=== PATIENT | male | born 1960 | race Caucasian/White ===

== ENCOUNTER → 2017-11-27 | Outpatient (CLI) | payer OTHER ==
[~2017-11-27] MED LIST: ACET-1693 PO; AMT10
== END | disposition home or self-care (01) ==
LOC: C.LAB1850 11:02
PROVIDERS: ATTEND Physician Assistant
DX: H90.42 Sensorineural hearing loss, unilateral, left ear, with unrestricted hearing on the contralateral side (principal); H81.09 Meniere's disease, unspecified ear

== ENCOUNTER → 2018-02-08 | Outpatient (CLI) | payer OTHER ==
[~2018-02-08] MED LIST changes: -ACET-1693 PO
[2018-02-08 09:57] LABS: BLOOD UREA NITROGEN 11 mg/dl (7-18); CALCIUM 9.1 mg/dl (8.5-10.1); CARBON DIOXIDE 28 mmol/L (21-32); CREATININE 0.83 mg/dl (0.60-1.40); GLUCOSE 89 mg/dl (70-99); POTASSIUM 4.2 mmol/L (3.5-5.1); SODIUM 139 mmol/L (136-145)
[2018-02-08 10:10] LABS: CHOLESTEROL 198 mg/dl (0-200); LDL CHOLESTEROL CALCULATED 101 mg/dl
== END | disposition home or self-care (01) ==
LOC: C.LAB1850 07:05
PROVIDERS: ATTEND Nurse Practitioner Adult Health
DX: Z82.49 Family history of ischemic heart disease and other diseases of the circulatory system (principal); Z82.3 Family history of stroke; Z13.220 Encounter for screening for lipoid disorders; Z12.5 Encounter for screening for malignant neoplasm of prostate; Z86.19 Personal history of other infectious and parasitic diseases; H93.12 Tinnitus, left ear; H91.90 Unspecified hearing loss, unspecified ear

== ENCOUNTER → 2018-03-26 | Outpatient (CLI) | payer OTHER ==
[2018-03-26 10:05] LABS: BLOOD UREA NITROGEN 13 mg/dl (7-18); CREATININE 0.89 mg/dl (0.60-1.40)
== END | disposition home or self-care (01) ==
LOC: C.LAB1850 07:51
PROVIDERS: ATTEND Physician Assistant
DX: H90.42 Sensorineural hearing loss, unilateral, left ear, with unrestricted hearing on the contralateral side (principal)

== ENCOUNTER 2022-11-02 20:43 | Inpatient (IN) ==
[2022-11-02] MEDS ORDERED: SODIUM CHLORIDE 0.9% 500 ML IV SCH (21:45)
--- NOTE | 2022-11-02 21:48 | Emergency Department Note ---
History of Present Illness General Chief complaint: Fall Time Seen by Provider: 11/02/22 21:22 History of Present Illness 62-year-old male presents to the ED with a chief complaint of a syncopal episode. The patient states that he believes he may have had a syncopal episode. He states that he was playing pinball with a pinball machine in the basement. There was some friends present. He states that he does not remember anything but waking up on the floor. His states that she was upstairs and the friends witnessed what occurred. They told her that he took a step backwards and then just collapsed. He was incontinent of urine. No clear seizure activity, per the . She states that he was unresponsive for about 2 minutes. He did not bite his tongue. He does not remember anything about the incident. He states that he awoke on the floor and thought he had just taken a nap. The patient wears a watch that monitors his heart rate. When looking at the graph, it appears as though there was a brief period where there was no heart beat. The patient did strike the back of his head on the concrete floor. Denies any neck pain or headache. Denies any complaints at this time. He is healthy. He did sprain his right ankle recently after going for a trail run. Denies any significant past medical history. Takes no medications. History of chronic left bundle branch block Home Medications Medication Instructions Recorded Confirmed Type No Known Home Medications 01/16/19 11/02/22 History Allergies Allergy/AdvReac Type Severity Reaction Status Date / Time No Known Drug Allergies Allergy Unknown NONE Verified 11/02/22 21:15 wheat Allergy Unknown AVOIDS Verified 11/02/22 21:15 CELIAC DISEASE Past Med/Surg History Medical History (Updated 11/02/22 @ 21:55 by Stephen Lara DO) Celiac disease Hearing deficit left ear Herniated cervical disc Left bundle branch block saw Dr. 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 Required: No Beliefs That Will Affect Care: None Current Living Situation: Spouse Feels Safe at Home: Yes Assistive Devices: Glasses Review of Systems A total of 10 systems reviewed and were otherwise negative Physical Exam Vital Signs Vital Signs - 24 hr 11/02/22 20:51 11/02/22 21:43 11/02/22 22:35 Temperature 36.7 C Temperature Source Oral Pulse Rate 76 Pulse Rate [Apical] 81 Pulse Rhythm Regular Pulse Strength Normal Respiratory Rate 16 16 Respiratory Effort / Characteristics Non-Labored Respiratory Depth Normal Respiratory Pattern Regular Blood Pressure 179/104 H Blood Pressure [Right Arm] Blood Pressure Mean 129 Blood Pressure Mean [Right Arm] Pulse Oximetry 98 97 98 Oxygen Delivery Method Room Air Room Air Sepsis Recent Fever Within 48 Hours No Sepsis New/Unexplained Change in Mental Status No Sepsis Action Taken by Nursing No Action Required 11/03/22 00:05 Temperature Temperature Source Pulse Rate Pulse Rate [Apical] 65 Pulse Rhythm Pulse Strength Respiratory Rate 16 Respiratory Effort / Characteristics Respiratory Depth Respiratory Pattern Blood Pressure Blood Pressure [Right Arm] 155/93 H Blood Pressure Mean Blood Pressure Mean [Right Arm] 113 Pulse Oximetry 98 Oxygen Delivery Method Room Air Sepsis Recent Fever Within 48 Hours Sepsis New/Unexplained Change in Mental Status Sepsis Action Taken by Nursing CONSTITUTIONAL/VITAL SIGNS: Reviewed / noted above. GENERAL: Non-toxic in appearance. INTEGUMENTARY: Warm, dry, and [place]. HEAD: Occipital hematoma EYES: without scleral icterus or trauma. ENT/OROPHARYNX: clear and moist. LYMPHADENOPATHY/NECK: Is supple without lymphadenopathy or meningismus. RESPIRATORY: Clear to auscultation bilaterally. No increased work of breathing. CARDIOVASCULAR: Regular rate and rhythm. GI/ABDOMEN: Soft and nontender. No organomegaly or pulsatile mass. EXTREMITIES: Warm and well perfused. BACK: No CVA tenderness. NEUROLOGICAL: Intact without focal deficits. PSYCHIATRIC: normal affect. MUSCULOSKELETAL: Normally developed with good muscle tone. TRIAGE NURSING DOCUMENTATION REVIEWED. Course Administered Medications Discontinued Medications Sodium Chloride (Nss) 500 mls @ 999 mls/hr IV .Q31M GLORIA Stop: 11/02/22 22:15 Last Infusion: 11/02/22 22:29 Dose: 0 mls/hr Documented By: Admin: 11/02/22 21:50 Dose: 999 mls/hr Documented By: LAISHA Medical Decision Making Differential Diagnosis Differential includes acute cardiac dysrhythmia, microinfarction, CVA, TIA, dehydration, anemia, electrolyte disturbance, seizure, trauma, intracranial bleeding, acute vascular catastrophe, thoracic aortic dissection, PE, abdominal aortic aneurysm rupture, ectopic rupture. Medical Records Attestation: I reviewed the patient's medical records. Home Medications Current Medication List: was personally reviewed by me Laboratory Data Attestation: I reviewed the patient's lab results. Result diagrams: 11/02/22 20:52 11/02/22 20:52 Lab Results 11/02/22 11/02/22 11/02/22 Range/Units 20:52 20:52 20:52 WBC 4.60 L (4.8-10.8) K/ul RBC 4.95 (4.63-6.08) M/uL Hgb 15.7 (14.0-18.0) g/dl Hct 44.5 (40.1-51.0) % MCV 89.9 (80.0-100.0) fL MCH 31.7 (25.0-34.0) pg MCHC 35.3 (32.0-36.0) g/dL RDW Std Deviation 41.2 (36.4-46.3) fL RDW Coeff of Anu 12.5 (11.5-14.5) % Plt Count 209 (130-400) K/uL MPV 10.6 (9.4-12.4) fL Immature Gran % (Auto) 0.2 % Neut % (Auto) 46.8 % Lymph % (Auto) 35.7 % [place] % (Auto) 13.3 % Eos % (Auto) 3.3 % Baso % (Auto) 0.7 % Neut # (Auto) 2.16 (1.4-6.5) K/uL Lymph # (Auto) 1.64 (1.2-3.4) K/uL [place] # (Auto) 0.61 (0.24-0.82) K/uL Eos # (Auto) 0.15 (0-0.50) K/uL Baso # (Auto) 0.03 (0-0.2) K/uL Immature Gran # (Auto) 0.01 (0.00-0.02) K/uL Sodium 140 (136-145) mmol/L Potassium 3.9 (3.5-5.1) mmol/L Chloride 105 (98-107) mmol/L Carbon Dioxide 27 (21-32) mmol/L Anion Gap 8 (3-11) BUN 12 (6-23) mg/dl Creatinine 0.85 (0.6-1.4) mg/dl Est Cr Clr Drug Dosing 103.9 ml/min Est GFR ( Amer) 106.7 ml/min Est GFR (Non-Af Amer) 92.1 ml/min BUN/Creatinine Ratio 14.1 (10-20) Glucose 96 (70-99(Fasting)) mg/dl Calcium 8.9 (8.5-10.1) mg/dl Magnesium 2.1 (1.7-2.4) mg/dl Total Bilirubin 0.6 (0.2-1.0) mg/dl AST 38 (13-39) U/L ALT 24 (7-52) U/L Alkaline Phosphatase 69 (34-104) U/L Troponin I High Sens 12.7 (0-20) pg/ml Total Protein 6.9 (6.0-8.3) gm/dl Albumin 4.2 (3.4-5.0) gm/dl Globulin 2.7 (2.5-4.0) gm/dl Albumin/Globulin Ratio 1.6 (0.9-2) TSH 4.581 H (0.300-4.500) uIu/ml Free T4 0.88 (0.61-1.60) ng/dl SARS-CoV-2, RNA, NAAT (NEGATIVE) 11/02/22 Range/Units 21:52 WBC (4.8-10.8) K/ul RBC (4.63-6.08) M/uL Hgb (14.0-18.0) g/dl Hct (40.1-51.0) % MCV (80.0-100.0) fL MCH (25.0-34.0) pg MCHC (32.0-36.0) g/dL RDW Std Deviation (36.4-46.3) fL RDW Coeff of Anu (11.5-14.5) % Plt Count (130-400) K/uL MPV (9.4-12.4) fL Immature Gran % (Auto) % Neut % (Auto) % Lymph % (Auto) % [place] % (Auto) % Eos % (Auto) % Baso % (Auto) % Neut # (Auto) (1.4-6.5) K/uL Lymph # (Auto) (1.2-3.4) K/uL [place] # (Auto) (0.24-0.82) K/uL Eos # (Auto) (0-0.50) K/uL Baso # (Auto) (0-0.2) K/uL Immature Gran # (Auto) (0.00-0.02) K/uL Sodium (136-145) mmol/L Potassium (3.5-5.1) mmol/L Chloride (98-107) mmol/L Carbon Dioxide (21-32) mmol/L Anion Gap (3-11) BUN (6-23) mg/dl Creatinine (0.6-1.4) mg/dl Est Cr Clr Drug Dosing ml/min Est GFR ( Amer) ml/min Est GFR (Non-Af Amer) ml/min BUN/Creatinine Ratio (10-20) Glucose (70-99(Fasting)) mg/dl Calcium (8.5-10.1) mg/dl Magnesium (1.7-2.4) mg/dl Total Bilirubin (0.2-1.0) mg/dl AST (13-39) U/L ALT (7-52) U/L Alkaline Phosphatase (34-104) U/L Troponin I High Sens (0-20) pg/ml Total Protein (6.0-8.3) gm/dl Albumin (3.4-5.0) gm/dl Globulin (2.5-4.0) gm/dl Albumin/Globulin Ratio (0.9-2) TSH (0.300-4.500) uIu/ml Free T4 (0.61-1.60) ng/dl SARS-CoV-2, RNA, NAAT NEGATIVE (NEGATIVE) ECG Data Attestation: I personally reviewed and interpreted this ECG as follows: Additional Comments: Twelve-lead EKG: Per my interpretation shows a sinus rhythm at a rate of 78. Left bundle branch block which apparently is chronic. ST elevation. No PVCs. Normal QTC. MDM Narrative 62-year-old male presents to the ED after what appears to be a possible cardiac syncope. The patient has a watch that monitors his heart rate and it produced a graph that showed that there was a period where he may have not had a heart rate that was detectable. The patient has no recollection of becoming lightheaded or dizzy prior to falling. States that he just remembers waking up on the ground as if he took a nap. Family and friends suggest that he was unresponsive for a minute or 2.He did suffer a contusion to the back of the head. Twelve-lead EKG shows a chronic left bundle branch block with sinus rhythm. CBC and chemistry panel was unremarkable. A T SH was slightly elevated but his free T4 was normal. Cardiac enzymes are normal. The patient's syncope today is concerning for cardiogenic type syncope. For this reason the hospitalist was consulted and will see the patient for further inpatient evaluation. Impression & Plan Syncope Discharge Plan Visit Data Chief Complaint: Fall ED Provider: Stephen Lara Discharge Problem: Syncope Patient Disposition: Being Evaluated by Hospitalist Forms Stand Alone Forms: My [employer] Prescriptions Prescriptions: No Action No Known Home Medications Referrals Referrals: Miya Be [Primary Care Provider] -
[2022-11-02 21:59] LABS: Basophils # (auto) 0.03 K/uL (0-0.2); Basophils % (auto) 0.7 %; Eosinophils # (auto) 0.15 K/uL (0-0.50); Eosinophils % (auto) 3.3 %; Hematocrit (blood only) 44.5 % (40.1-51.0); Hemoglobin 15.7 g/dl (14.0-18.0); Immature Granulocytes # (auto) 0.01 K/uL (0.00-0.02); Immature Granulocytes % (auto) 0.2 %; Lymphocytes # (auto) 1.64 K/uL (1.2-3.4); Lymphocytes % (auto) 35.7 %; Mean Corpuscular Hemoglobin 31.7 pg (25.0-34.0); Mean Corpuscular Hgb Conc 35.3 g/dL (32.0-36.0); Mean Corpuscular Volume 89.9 fL (80.0-100.0); Mean Platelet Volume 10.6 fL (9.4-12.4); Monocytes # (auto) 0.61 K/uL (0.24-0.82); Monocytes % (auto) 13.3 %; Neutrophils # (auto) 2.16 K/uL (1.4-6.5); Neutrophils % (auto) 46.8 %; Platelet Count 209 K/uL (130-400); RDW Coefficient of Variation 12.5 % (11.5-14.5); RDW Standard Deviation 41.2 fL (36.4-46.3); Red Blood Count 4.95 M/uL (4.63-6.08)
[2022-11-02 22:13] LABS: Albumin Globulin Ratio 1.6 (0.9-2); Albumin Level 4.2 gm/dl (3.4-5.0); BUN Creatinine Ratio 14.1 (10-20); Bilirubin,Total 0.6 mg/dl (0.2-1.0); Calcium 8.9 mg/dl (8.5-10.1); Creatinine Clr Calc Pharmacy 103.9 ml/min; Est GFR (African American) 106.7 ml/min; Est GFR (Non-African American) 92.1 ml/min; Globulin 2.7 gm/dl (2.5-4.0); Magnesium 2.1 mg/dl (1.7-2.4); Potassium 3.9 mmol/L (3.5-5.1); Total Protein 6.9 gm/dl (6.0-8.3)
[2022-11-02 22:17] LABS: Troponin I High Sensitivity 12.7 pg/ml (0-20)
[2022-11-02 22:25] LABS: Thyroid Stimulating Hormone 4.581 uIu/ml (0.300-4.500)
[2022-11-02 22:57] LABS: T4 Free Thyroxine 0.88 ng/dl (0.61-1.60)
--- NOTE | 2022-11-03 00:31 | History & Physical Report ---
Date of Service November 03, 2022 Assessment & Plan (1) Syncope and collapse: Plan: Syncope and collapse- Witnessed episode by of duration 2 to 4 minutes No warning ahead of time Patient did have brief loss of bladder control but normal bowel function Was not postictal Patient's body was thought to be briefly stiff, but did not have any convulsions It was noted on the patient's smart watch that there was an episode where there was no heartbeat. Taking into account the patient's presentation, history of previous ablation, family history of father having a pacer, the principal cause is more likely cardiac than neurologic. EKG showed normal sinus rhythm at 75, with left bundle branch block, no acute ST-T changes The patient will be admitted to telemetry for serial cardiac enzymes, serial EKG's, cardiac rhythm monitoring and a 2-D echocardiogram with Dopplers. Placement of pacer with pads at bedside (2) Celiac disease: Plan: Resume celiac diet when patient is no longer n.p.o. 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 Primary Care Provider: Miya Be The patient is a 62-year-old male with a past medical history including cardiac ablation for Lyme associated arrhythmia, Lyme disease July 2018, and chronic left bundle branch block. 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 The patient reports that when he had his cardiac arrhythmias in the past, he had warnings of lightheadedness or dizziness. He denies any warning at this episode. Overall length of time of episode was estimated between 2 to 4 minutes. His reports that he did lose bladder control, but did not have any postictal state afterwards, and thought he might have had tense muscles, but did not have any overt shaking contractions. The patient denies any change in his usual activity or eating or drinking patterns. He typically averages 1 glass of wine daily, which he had today. His father has had a history of a pacer placement by Dr. Biggs Allergies Allergy/AdvReac Type Severity Reaction Status Date / Time No Known Drug Allergies Allergy Unknown NONE Verified 11/02/22 21:15 wheat Allergy Unknown AVOIDS Verified 11/02/22 21:15 CELIAC DISEASE Home Medications Medication Instructions Recorded Confirmed Type No Known Home Medications 01/16/19 11/02/22 History Past Med/Surg History Medical History (Updated 11/03/22 @ 03:27 by Luiz Becerril MD) Celiac disease Hearing deficit left ear Herniated cervical disc History of Lyme disease Left bundle branch block saw Dr. Oliver 2017 Surgical History (Updated 11/03/22 @ 03:27 by Luiz Becerril MD) History of Achilles tendon repair left History of ankle surgery left--no hardware History of cardiac radiofrequency ablation History of colonoscopy History of esophagogastroduodenoscopy (EGD) History of myringotomy bilt History of surgery right hand, middle finger History of wisdom tooth extraction Hx of vasectomy Family History Other No family history of adverse response to anesthesia Social History Smoking Status: Never smoker Second Hand Exposure: No; Hx Alcohol Use: Yes Alcohol type: wine Hx Substance Use: No Preferred Language: Wallisian Communication Ability: Effective Medicaid Eligibility Specialist Required: No Beliefs That Will Affect Care: None Current Living Situation: Spouse Feels Safe at Home: Yes Safety Concerns: Feels Safe At This Time Assistive Devices: Glasses Assistive Devices Comment: reading glasses Review of Systems Review of Systems: The patient denies chest pain, palpitations, shortness of breath, dyspnea on exertion, cough, lower extremity swelling, sore throat, fevers, chills, sweats, weight change, fatigue, nausea, vomiting, diarrhea , constipation, abdominal pain, pelvic pain, blood in urine or stool, dysuria, urinary frequency or urgency, lightheadedness, dizziness, rash, focal weakness, numbness or tingling in arms or legs, generalized arthralgias or myalgias, back or neck pain, or night sweats. The review of systems is otherwise negative other than for that already noted above, and at least 10 systems have been reviewed. Physical Exam Physical Exam: The patient is awake, alert and oriented 3, well developed and well nourished, laceration on left posterior parietal scalp area and resultant hematoma, otherwise lying in bed and in no acute distress. HEENT--PERRL, EOMI, mucous membranes and oropharynx normal. Neck--supple. No JVD. No bruits. Thyroid normal, trachea midline, no adenopathy. Heart--normal S1 and S2. No murmurs, rubs or gallops. Lungs--clear bilaterally, no respiratory distress, no accessory muscle use. Abdomen--normal bowel sounds and soft. Nontender. Nondistended, no hernias or masses, no organomegaly. Extremities--no cyanosis or clubbing. No edema. Dermatologic--normal skin turgor, normal color, no abnormal lymph nodes, no rash. Neurologic--cranial nerves II through XII grossly intact. Rheumatologic--normal range of motion. Psychiatric--normal affect. Results & Data Results & Data ([facility]) Vital Signs (Past 12 Hours) Vital Signs Temp Pulse Pulse Resp BP BP Pulse Ox 11/03/22 00:05 65 16 155/93 H 98 11/02/22 22:35 81 16 98 11/02/22 21:43 97 11/02/22 20:51 36.7 C 76 16 179/104 H 98 O2 Del Method 11/03/22 00:05 Room Air 11/02/22 22:35 11/02/22 21:43 Room Air 11/02/22 20:51 Room Air Laboratory Results Laboratory Results WBC 4.60 K/ul (4.8-10.8) L 11/02/22 20:52 RBC 4.95 M/uL (4.63-6.08) 11/02/22 20:52 Hgb 15.7 g/dl (14.0-18.0) 11/02/22 20:52 Hct 44.5 % (40.1-51.0) 11/02/22 20:52 MCV 89.9 fL (80.0-100.0) 11/02/22 20:52 MCH 31.7 pg (25.0-34.0) 11/02/22 20:52 MCHC 35.3 g/dL (32.0-36.0) 11/02/22 20:52 RDW Std Deviation 41.2 fL (36.4-46.3) 11/02/22 20:52 RDW Coeff of Anu 12.5 % (11.5-14.5) 11/02/22 20:52 Plt Count 209 K/uL (130-400) 11/02/22 20:52 MPV 10.6 fL (9.4-12.4) 11/02/22 20:52 Immature Gran % (Auto) 0.2 % 11/02/22 20:52 Neut % (Auto) 46.8 % 11/02/22 20:52 Lymph % (Auto) 35.7 % 11/02/22 20:52 [place] % (Auto) 13.3 % 11/02/22 20:52 Eos % (Auto) 3.3 % 11/02/22:52 Baso % (Auto) 0.7 % 11/02/22:52 Neut # (Auto) 2.16 K/uL (1.4-6.5) 11/02/22 20:52 Lymph # (Auto) 1.64 K/uL (1.2-3.4) 11/02/22 20:52 [place] # (Auto) 0.61 K/uL (0.24-0.82) 11/02/22 20:52 Eos # (Auto) 0.15 K/uL (0-0.50) 11/02/22 20:52 Baso # (Auto) 0.03 K/uL (0-0.2) 11/02/22 20:52 Immature Gran # (Auto) 0.01 K/uL (0.00-0.02) 11/02/22 20:52 Sodium 140 mmol/L (136-145) 11/02/22 20:52 Potassium 3.9 mmol/L (3.5-5.1) 11/02/22 20:52 Chloride 105 mmol/L (98-107) 11/02/22 20:52 Carbon Dioxide 27 mmol/L (21-32) 11/02/22 20:52 Anion Gap 8 (3-11) 11/02/22 20:52 BUN 12 mg/dl (6-23) 11/02/22 20:52 Creatinine 0.85 mg/dl (0.6-1.4) 11/02/22 20:52 Est Cr Clr Drug Dosing 103.9 ml/min 11/02/22 20:52 Est GFR ( Amer) 106.7 ml/min 11/02/22 20:52 Est GFR (Non-Af Amer) 92.1 ml/min 11/02/22 20:52 BUN/Creatinine Ratio 14.1 (10-20) 11/02/22 20:52 Glucose 96 mg/dl (70-99(Fasting)) 11/02/22 20:52 Calcium 8.9 mg/dl (8.5-10.1) 11/02/22 20:52 Magnesium 2.1 mg/dl (1.7-2.4) 11/02/22 20:52 Total Bilirubin 0.6 mg/dl (0.2-1.0) 11/02/22 20:52 AST 38 U/L (13-39) 11/02/22 20:52 ALT 24 U/L (7-52) 11/02/22 20:52 Alkaline Phosphatase 69 U/L (34-104) 11/02/22 20:52 Troponin I High Sens 12.7 pg/ml (0-20) 11/02/22 20:52 Total Protein 6.9 gm/dl (6.0-8.3) 11/02/22 20:52 Albumin 4.2 gm/dl (3.4-5.0) 11/02/22 20:52 Globulin 2.7 gm/dl (2.5-4.0) 11/02/22 20:52 Albumin/Globulin Ratio 1.6 (0.9-2) 11/02/22 20:52 TSH 4.581 uIu/ml (0.300-4.500) H 11/02/22 20:52 Free T4 0.88 ng/dl (0.61-1.60) 11/02/22 20:52 SARS-CoV-2, RNA, NAAT NEGATIVE (NEGATIVE) 11/02/22 21:52 Code Status & VTE Plan Code Status Full code VTE Prophylaxis Plan VTE Prophylaxis will be ordered: Yes
[2022-11-03] MEDS ORDERED: ACETAMINOPHEN 325 MG TAB PO PRN (02:15)
[2022-11-03] MEDS ORDERED: ONDANSETRON INJ 2 MG/ML 2 ML VIAL IV PRN (02:15)
[2022-11-03] MEDS ORDERED: NSS + 20MEQ KCL 20 MEQ/1,000 ML BAG IV SCH (02:30)
--- NOTE | 2022-11-03 03:32 | Billing Data ---
Date of Service November 03, 2022 Coding Level of Care Code INT OBSERVATION CARE 70M LVL 3
[2022-11-03 06:12] LABS: Basophils # (auto) 0.03 K/uL (0-0.2); Basophils % (auto) 0.5 %; Eosinophils # (auto) 0.06 K/uL (0-0.50); Eosinophils % (auto) 1.1 %; Hematocrit (blood only) 41.3 % (40.1-51.0); Hemoglobin 14.5 g/dl (14.0-18.0); Immature Granulocytes # (auto) 0.01 K/uL (0.00-0.02); Immature Granulocytes % (auto) 0.2 %; Lymphocytes # (auto) 0.86 K/uL (1.2-3.4); Lymphocytes % (auto) 15.4 %; Mean Corpuscular Hemoglobin 31.5 pg (25.0-34.0); Mean Corpuscular Hgb Conc 35.1 g/dL (32.0-36.0); Mean Corpuscular Volume 89.8 fL (80.0-100.0); Mean Platelet Volume 10.3 fL (9.4-12.4); Monocytes # (auto) 0.74 K/uL (0.24-0.82); Monocytes % (auto) 13.3 %; Neutrophils # (auto) 3.88 K/uL (1.4-6.5); Neutrophils % (auto) 69.5 %; Platelet Count 188 K/uL (130-400); RDW Coefficient of Variation 12.4 % (11.5-14.5); RDW Standard Deviation 40.9 fL (36.4-46.3); White Blood Count 5.58 K/ul (4.8-10.8)
[2022-11-03 06:48] LABS: Albumin Globulin Ratio 1.7 (0.9-2); Albumin Level 3.8 gm/dl (3.4-5.0); Bilirubin,Total 0.8 mg/dl (0.2-1.0); Calcium 8.6 mg/dl (8.5-10.1); Est GFR (African American) 112.4 ml/min; Est GFR (Non-African American) 96.9 ml/min; Globulin 2.3 gm/dl (2.5-4.0); Potassium 4.4 mmol/L (3.5-5.1); Total Protein 6.1 gm/dl (6.0-8.3)
--- NOTE | 2022-11-03 06:51 | CT Scan Report ---
CT head/brain wo con CLINICAL HISTORY: 62 years-old Male with head injury. Acute head injury status post fall TECHNIQUE: Multiple axial CT images of the head were obtained without contrast. A dose lowering tech nique was utilized adhering to the principles of ALARA. CT DOSE: 614.27 mGy.cm COMPARISON: 11/26/2006 FINDINGS: No acute intracranial hemorrhage, midline shift, intracranial mass, hydrocephalus, territorial ischem ia or abnormal extra-axial collection. The calvarium is intact. Trace mastoid effusions. Paranasal sinuses are generally clear. Laceration with 7 cm left occipital scalp hematoma. IMPRESSION: 1. No acute intracranial abnormality or calvarial fracture. 2. Left occipital scalp laceration with hematoma. ACT 112: Negative or not required by law. The above report was generated using voice recognition software. It may contain grammatical, syntax o r spelling errors. Electronically signed by: Yves Jane M.D. 11/03/2022 6:50 AM
--- NOTE | 2022-11-03 08:16 | XRay Report ---
XR chest 1V portable CLINICAL HISTORY: syncope TECHNIQUE: Single frontal radiograph of the chest was obtained. Comparison: None available at the time of this dictation. FINDINGS: No lines and tubes are seen. The cardiomediastinal silhouette is normal. The lungs are clear. No evid ence of pleural effusion or pneumothorax. IMPRESSION: No acute chest disease. ACT 112: Negative or not required by law. Electronically signed by: Alvaro Mena M.D. 11/03/2022 8:15 AM
--- NOTE | 2022-11-03 11:39 | XCELERA ---
[id number]
--- NOTE | 2022-11-03 14:55 | Cardiology Consultation ---
Date of Consultation November 03, 2022 Assessment & Plan (1) Syncope: -episode of traumatic syncope prompting this hospitalization. -Apple watch suggested no pulse during the event. -no prior history of syncope. -Dr. Biggs will see the patient today. (2) Left bundle branch block: -diagnosed back in 2007. -negative workup at that time. -current echocardiogram notes normal systolic function. History of Present Illness Attending Physician: Hieu Aceves MD History of Present Illness Mr. Nunes is a 62-year-old male admitted earlier today after an episode of witnessed syncope. This consultation was ordered to assist in his cardiac management. The patient was in his usual state of health until last evening. While playing pin ball in his basement with friends, the patient had the abrupt onset of a syncopal episode falling backwards and striking his head. One of his friends noticed a strange look on his face just prior to the event. The explains that she was unable to find a pulse for approximately 20 seconds. The patient walk after approximately 2 minutes. He has never had a prior episode of syncope. His Apple watch suggested there was no pulse during the event. He does have a longstanding history of a left bundle branch block which was diagnosed back in 2007 at the time of an outpatient colonoscopy. 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 He did have left ventricular dysfunction which resolved with treatment. He did have a cardiac CT scan performed at that time which showed no evidence of obstructive disease. 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 He has never experienced exertional chest pain or limiting dyspnea. He further denies PND, orthopnea, palpitations, lower extremity edema, and claudication. Currently, patient is resting comfortably in bed without complaints. Past medical and surgical history 1. LBBB 2. Celiac disease 3. Colonic polyps 4. Cervical disc disease 5. 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 Family history Father in his 90s of old age. Mother is in her 80s with hypertension. Review of systems A 10 review systems was undertaken and negative except that described above. Allergies Allergy/AdvReac Type Severity Reaction Status Date / Time No Known Drug Allergies Allergy Unknown NONE Verified 11/02/22 21:15 wheat Allergy Unknown AVOIDS Verified 11/02/22 21:15 CELIAC DISEASE Home Medications Medication Instructions Recorded Confirmed Type No Known Home Medications 01/16/19 11/02/22 History Patient History Medical History (Updated 11/03/22 @ 03:27 by Luiz Becerril MD) Celiac disease Hearing deficit left ear Herniated cervical disc History of Lyme disease Left bundle branch block saw Dr. Oliver 2017 Surgical History (Updated 11/03/22 @ 03:27 by Luiz Becerril MD) History of Achilles tendon repair left History of ankle surgery left--no hardware History of cardiac radiofrequency ablation History of colonoscopy History of esophagogastroduodenoscopy (EGD) History of myringotomy bilt History of surgery right hand, middle finger History of wisdom tooth extraction Hx of vasectomy Family History Other No family history of adverse response to anesthesia Social History Smoking Status: Never smoker Second Hand Exposure: No; Hx Alcohol Use: Yes Alcohol type: wine Hx Substance Use: No Preferred Language: Singaporean Communication Ability: Effective Diesel Service Journeyman Required: No Beliefs That Will Affect Care: None Current Living Situation: Spouse Feels Safe at Home: Yes Safety Concerns: Feels Safe At This Time Assistive Devices: Glasses Assistive Devices Comment: reading glasses Physical Exam Physical Exam: In general this is a well-developed well-nourished white male in no acute distress. HEENT exam is negative. Neck is supple with full carotid upstrokes. There are no carotid bruits. Jugular venous pressure is flat at 90. There is no thyromegaly. Cardiovascular exam reveals a regular rhythm with a normal S1 and S2. No S3, S4, or murmurs are noted. Lungs are clear without rales, rhonchi, or wheezes. Abdomen is soft and nontender without bruits. Extremities reveal intact radial artery and posterior tibial pulses bilaterally. There is no peripheral edema. Results & Data ([facility]) Vital Signs (Past 12 Hours) Vital Signs Temp Pulse Resp BP Pulse Ox O2 Del Method 11/03/22 11:47 36.2 C L 56 L 14 157/85 H 97 Room Air 11/03/22 08:20 36.6 C 62 17 154/75 H 97 Room Air Laboratory Results CBC notes hemoglobin 14.5, crit 41.3, white count 5.58, and platelet count [id number]. Electrolytes note a sodium of 139, potassium 4.4, chloride 109, bicarb 25, BUN 12, creatinine 0.75, glucose of 96. High sensitivity troponin is 12.7. Diagnostic Findings EKG notes sinus rhythm with a complete left bundle-branch block. Echocardiogram notes normal left ventricular systolic function with ejection fraction 55-60%. There is borderline LVH. No significant valvular pathology. PG Care Time/CCT Total # of Minutes Spent Total Time Spent with Patient: Total time spent is greater than 50% in coordination of care (as documented) at patient's floor/unit and/or counseling patient: Coding Level of Care Code 36328 Inpt Consult Level 4 Diagnoses Syncope R55 Left bundle branch block I44.7
--- NOTE | 2022-11-03 16:44 | Electrocardiogram Report ---
Test Reason : Blood Pressure : / mmHG Vent. Rate : 075 BPM Atrial Rate : 075 BPM P-R Int : 190 ms QRS Dur : 142 ms QT Int : 444 ms P-R-T Axes : 055 050 -87 degrees QTc Int : 495 ms Normal sinus rhythm Possible Left atrial enlargement Left bundle branch block Abnormal ECG No previous ECGs available Confirmed by Tereso Oliver ([id number]) on 11/03/2022 4:44:23 PM Referred By: REFERRED SELF Confirmed By:Tereso Oliver
--- NOTE | 2022-11-03 16:46 | Electrocardiogram Report ---
Test Reason : Blood Pressure : / mmHG Vent. Rate : 064 BPM Atrial Rate : 064 BPM P-R Int : 190 ms QRS Dur : 134 ms QT Int : 466 ms P-R-T Axes : 067 065 -69 degrees QTc Int : 480 ms Normal sinus rhythm Left bundle branch block T wave abnormality, consider inferior ischemia Abnormal ECG When compared with ECG of 02-NOV-2022 20:49, (unconfirmed) No significant change was found Confirmed by Tereso Oliver ([id number]) on 11/03/2022 4:46:15 PM Referred By: REFERRED SELF Confirmed By:Tereso Oliver
--- NOTE | 2022-11-03 19:49 | History & Physical Bridge Note ---
Date of Service November 03, 2022 History & Physical Bridge Note I have examined the patient, reviewed the History & Physical and in the interval since the performance of the History & Physical I have noted the following changes of clinical significance: Met patient in his room around 6 PM. Has no has not had any further episodes of syncope or dizziness. No home meds. Was diagnosed with Lyme carditis in 2012 and before that with a left bundle branch block post colonoscopy. He has been training for a marathon. He has almost been a triathlete in the past. Runs was running on the [place] practicing for marathon as recently as a few days ago. No known hypertension but persistently high blood pressure here. No complaints and waiting for Sunday when a possible pacemaker implantation will be done. 's note not available Will start amlodipine 2.5 mg daily for hypertension in the morning. Sinus bradycardia in the 50s and 60s on telemetry. Echocardiogram normal except for concentric LVH, likely from undiagnosed hypertension Interestingly blood pressure was 159/74 on 02/03/19
[2022-11-04 05:39] LABS: Basophils # (auto) 0.03 K/uL (0-0.2); Basophils % (auto) 0.8 %; Eosinophils # (auto) 0.13 K/uL (0-0.50); Eosinophils % (auto) 3.4 %; Hematocrit (blood only) 43.1 % (40.1-51.0); Hemoglobin 15.1 g/dl (14.0-18.0); Immature Granulocytes # (auto) 0.01 K/uL (0.00-0.02); Immature Granulocytes % (auto) 0.3 %; Lymphocytes # (auto) 1.09 K/uL (1.2-3.4); Lymphocytes % (auto) 28.2 %; Mean Corpuscular Hemoglobin 31.5 pg (25.0-34.0); Mean Platelet Volume 10.4 fL (9.4-12.4); Monocytes # (auto) 0.63 K/uL (0.24-0.82); Monocytes % (auto) 16.3 %; Neutrophils # (auto) 1.97 K/uL (1.4-6.5); Platelet Count 189 K/uL (130-400); RDW Coefficient of Variation 12.2 % (11.5-14.5); RDW Standard Deviation 40.3 fL (36.4-46.3); Red Blood Count 4.79 M/uL (4.63-6.08); White Blood Count 3.86 K/ul (4.8-10.8)
[2022-11-04 06:03] LABS: Albumin Globulin Ratio 1.6 (0.9-2); Albumin Level 3.8 gm/dl (3.4-5.0); BUN Creatinine Ratio 15.6 (10-20); Calcium 8.6 mg/dl (8.5-10.1); Creatinine Clr Calc Pharmacy 103.2 ml/min; Est GFR (African American) 111.2 ml/min; Est GFR (Non-African American) 95.9 ml/min; Globulin 2.4 gm/dl (2.5-4.0); Magnesium 1.9 mg/dl (1.7-2.4); Total Protein 6.2 gm/dl (6.0-8.3)
--- NOTE | 2022-11-04 08:42 | Hospitalist Progress Note ---
Date of Service November 04, 2022 Assessment & Plan (1) Syncope and collapse: Plan: assumed sick sinus syndrome . Patient says likely pacemaker insertion 11/06 per EP cardiogy EKG : this am : PVCs, sinus bradycardia (2) Hypertension: Plan: ne dx- last got bp check a year ago at PCP visit and was in 130s he thinks Started amlodipine this am first dose 2.5 mg. Answered patient's questions re this drug. Low salt diet and education. (3) Celiac disease: Plan: dx 15 years ago-on glutein free diet- no symptoms. (4) Left bundle branch block: Plan: long standing. No symptoms of angina ever- very active running on trails etc. check FLP (5) History of Lyme disease: Plan: and Lyme carditis evaluated by a product marketing manager Plan on tele. Cardiology following- appreciated Milddly elvated TSH - not concerning . Admission and Anticipated Discharge Date Admission Date: November 03, 2022 Subjective seen at 0815 h no dizziness/ CP/syncope. Slept well. No weight change/ cold intolerance/ dry skin Physical Exam Physical Exam: pleasant, conversant, in street clothes, shoes ready by chair to start walking in colon H/N : no thyromegaly Chest CTA cvs: s1, s2 no murmur tele- sinus bradycardia at 4 per minute MICROFILMER : grossly intact cheerful, normal insight and judgment Results & Data Results & Data ([facility]) Vital Signs (Past 12 Hours) Vital Signs Temp Pulse Pulse Resp BP Pulse Ox O2 Del Method 11/04/22 02:56 36.5 C 54 L 20 144/76 H 97 Room Air 11/04/22 01:12 58 L 11/03/22 22:47 36.8 C 60 18 159/78 H 98 Room Air Laboratory Results Abnormal lab results 11/04/22 11/04/22 Range/Units 05:10 05:10 WBC 3.86 L (4.8-10.8) K/ul Lymph # (Auto) 1.09 L (1.2-3.4) K/uL Chloride 108 H (98-107) mmol/L Globulin 2.4 L (2.5-4.0) gm/dl normal Mg, lipid panel pending 11/04 Medications Administered norvasc 2.5 mg this am PG Care Time/CCT Total # of Minutes Spent Total Time Spent with Patient: Total time spent is greater than 50% in coordination of care (as documented) at patient's floor/unit and/or counseling patient: Coding Level of Care Code 50312 Subseq Hosp Care Lvl 2 Diagnoses Syncope and collapse R55 Hypertension I10 Celiac disease K90.0 Left bundle branch block I44.7 History of Lyme disease Z86.19
[2022-11-04] MEDS: amLODIPine BESYLATE 5 MG TAB PO SCH (08:55)
[2022-11-04 09:13] LABS: Chol HDL Ratio 2.4 (0-5)
[2022-11-05] MEDS: amLODIPine BESYLATE 5 MG TAB PO SCH (08:08)
--- NOTE | 2022-11-05 14:30 | Neurology Consultation ---
Date of Consultation November 05, 2022 Assessment & Plan (1) Syncope and collapse: (2) Head trauma: (3) Hypertension: Plan this patient had a single episode November 02 of syncope, without any warning, falling straight down and hitting the back of his head. There may have been s ome brief secondary seizure activity, but this is not consistent with primary epilepsy. It would be highly unusual for a healthy adult to have the new onset of "atonic" seizures. Also, this is not consistent with orthostasis as no warning of lightheadedness was present. Patient struck the back of his head rather hard and had a loss of consciousness for couple of minutes. I suspect a concussion from closed head trauma although he does not have any post concussive type symptoms including no headache. His neurologic examination is unremarkable currently. I think the evidence points toward a cardiac dysrhythmia as the origin of this event. Recommendations: 1. I see no need for neurologic testing but to obtain an MRI of the brain with/without contrast, is reasonable ( this could be done as an inpatient or outpatient). 2. I see no reason for an EEG at this time. 3. there is no indication for initiating an anticonvulsant at this time. 4. I have no further recommendations otherwise I can follow as an outpatient if desired Overall, I spent a total of 60 minutes with this case including review of records, direct evaluation the patient at bedside, and discussion of the case with the patient and RN at bedside and Dr. Aceves, including differential diagnosis and treatment options. History of Present Illness Reason for Consultation: Patient is a 62-year-old, who I was asked to see at the request of Dr. Aceves, neurologic consultation regarding syncope, question seizures Requesting Physician: Dr. Valdes Attending Physician: Hieu Aceves MD History of Present Illness this patient has a history of left bundle branch block, followed by Cardiology. He has no history of hypertension, diabetes, stroke or other heart disease. He was on no medication prior to admission. he has no history of seizures or other neurologic events in the. Patient was playing with friends in the evening November 02. According to witnesses he stopped, to one-step back then collapsed suddenly to the ground striking the back of his head on the concrete. He was loose as he went. No tonic-clonic activity was noted but apparently he some incontinence of urine bit his lower limb. His tongue was not. He was unconscious for about 2 minutes and then came to. His watch, which monitors his heartbeat, had a complete pause (as with no heartbeat) for several seconds during that time. I have seen the evidence on his watch. He came to the emergency room and his blood pressure was 179/104. He was afebrile and his pulse was in the 70s. He has had no further syncopal episodes for seizure activity. CT scan head was. CBC and Chem profile were. TSH mildly elevated at 4.3. Today he is asymptomatic although the back of his head is still sore from the bruise from the event. Echocardiogram was largely Unremarkable. Allergies Allergy/AdvReac Type Severity Reaction Status Date / Time No Known Drug Allergies Allergy Unknown NONE Verified 11/02/22 21:15 wheat Allergy Unknown AVOIDS Verified 11/02/22 21:15 CELIAC DISEASE Home Medications Medication Instructions Recorded Confirmed Type No Known Home Medications 01/16/19 11/02/22 History Patient History Medical History Celiac disease Hearing deficit left ear Herniated cervical disc History of Lyme disease Left bundle branch block saw Dr. Oliver 2017 Surgical History History of Achilles tendon repair left History of ankle surgery left--no hardware History of cardiac radiofrequency ablation History of colonoscopy History of esophagogastroduodenoscopy (EGD) History of myringotomy bilt History of surgery right hand, middle finger History of wisdom tooth extraction Hx of vasectomy Family History Other No family history of adverse response to anesthesia Social History (Updated 11/05/22 @ 14:24 by Maxi Hughes MD) Smoking Status: Never smoker Second Hand Exposure: No; Hx Alcohol Use: Yes Alcohol type: wine Hx Substance Use: No Preferred Language: Greek Communication Ability: Effective District Service Manager Required: No Beliefs That Will Affect Care: None Current Living Situation: Spouse current occupational status: employed 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 Feels Safe at Home: Yes Safety Concerns: Feels Safe At This Time Assistive Devices: None Assistive Devices Comment: reading glasses Review of Systems Constitutional: no fever, no fatigue and no weakness Eyes: no diplopia, no eye pain and no worsening vision Ear, Nose, Mouth, Throat: no ear pain, no tinnitus, no hearing loss, no dizziness, no snoring, no hoarseness and no dysphagia Respiratory: no cough and no dyspnea Cardiovascular: no chest pain, no palpitations and no lightheadedness Gastrointestinal: no abdominal pain, no nausea and no vomiting Musculoskeletal: no back pain, no neck pain, no radicular pain, no joint pain and no myalgia Integumentary: no rash and no lesions Neurologic: no gait abnormality, no localized weakness, no generalized weakness, no tingling, no numbness, no tremor(s), no abnormal movements, no headache(s), no abnormal speech, no confusion and no memory loss Psychiatric: no depression, no irritability, no anxiety, no difficulty concentrating, no confusion and no hallucinations Endocrine: no fatigue and no flushing Hematologic / Lymphatic: no easy bleeding and no easy bruising Allergy / Immunological: no urticaria and no problem reported Exam (Neuro) Physical Exam: The patient is right-handed. The patient is awake, alert, and attentive. Speech is normal without any aphasia or dysarthria. The patient can name objects, repeat phrases, and has normal spontaneous speech. Mentation and thought processes are intact, with orientation to person, place and time, and normal fund of knowledge. Attention and concentration are normal. Mood and affect are normal and appropriate. General appearance and grooming are normal. Short and long-term memory are in tact. The discs are sharp with positive venous pulsations bilaterally. There are no exudates, hemorrhages, or blood vessel changes seen. Pupils are 4 mm bilaterally and reactive to light. Extraocular eye muscles are intact without nystagmus. Visual acuity and visual jernigan seem normal grossly to confrontation. There are no deficits to sensation in the face in all 3 distributions of the fifth cranial nerve bilaterally. Corneal reflexes are positive bilaterally. Facial strength and symmetry was normal bilaterally. Hearing seems normal bilaterally. Palate moves well without asymmetry. There is normal sternocleidomastoid and trapezius (shoulder shrug) strength bilaterally. Tongue is midline with good strength bilaterally. Neck has a full range of motion without discomfort. There are no cervical bruits bilaterally. There are no cranial or ocular bruits. Heart is without murmur. There is a regular rhythm and rate. Cervical, thoracic, and lumbar spine are nontender to palpation. His stance is normal sitting in chair With outstretched arms there is no drift. There are no resting, postural, or action tremors. There is no ataxia with finger to nose testing. There is good facility in the hands. No other abnormal involuntary movements are noted. Motor strength is 5/5 diffusely in the arms bilaterally including deltoids, biceps, triceps, brachioradialis, wrist flexors and extensors, education faculty member, and intrinsic hand muscles. Motor strength is 5/5 diffusely in the legs bilaterally including hip flexors, quadriceps, hamstrings, gastrocnemius, tibialis anterior, tibialis posterior, and Peroneii muscles. Toe extensors are normal and there is good bulk in the extensor digitorum brevis muscles bilaterally. The limbs have good tone without rigidity or spasticity. There is no atrophy noted in the muscles. Muscle bulk is normal, there is no tenderness to palpation, no myotonia to percussion, and no fasciculations seen. Sensory examination is intact to touch and pin throughout all 4 limbs diffusely. Reflexes are 1/4 in the biceps, triceps, brachioradialis, quadriceps, and Achilles tendons bilaterally. There is no clonus bilaterally. Results & Data ([facility]) Vital Signs (Past 12 Hours) Vital Signs Temp Pulse Pulse Resp BP Pulse Ox O2 Del Method 11/05/22 12:09 36.5 C 53 L 20 150/75 H 99 Room Air 11/05/22 08:00 52 L 11/05/22 07:53 36.6 C 57 L 20 115/72 97 Room Air 11/05/22 03:00 36.5 C 50 L 20 138/81 98 Room Air PG Care Time/CCT Total # of Minutes Spent Total Time Spent with Patient: Total time spent is greater than 50% in coordination of care (as documented) at patient's floor/unit and/or counseling patient: Coding Level of Care Code 81864 Inpt Consult Level 5 Diagnoses Syncope and collapse R55 Head trauma S09.90XA Hypertension I10
--- NOTE | 2022-11-05 15:45 | Hospitalist Progress Note ---
Date of Service November 05, 2022 Assessment & Plan (1) Syncope and collapse: Plan: assumed sick sinus syndrome needing pacemaker placement. 11/05 D/W Roshni Biggs and [place]. (Office Manager and child care development specialist on- call today respectively). Neurology consult obtained to rule out seizures. Mendy Hughes' s input- unlikely epileptic seizures. No plan for EEG Cardiogenic cause of syncope appears most likely. Patient would like to speak with a child care development specialist in detail before any procedure and both cardiologists above aware . MRI brain suggested and ordered because may not be able to get after pacemaker insertion . EKG : 11/05 normal sinus rhythm left bundle branch block, rate 53/min, no PVCs seen today (2) Hypertension: Plan: new dx- last got bp check a year ago at PCP visit and was in 130s he thinks Started amlodipine 11/04 first dose 2.5 mg. Answered patient's questions re this drug. Low salt diet and education. (3) Celiac disease: Plan: dx 15 years ago-on glutein free diet- no symptoms. (4) Left bundle branch block: Plan: long standing. No symptoms of angina ever- very active running on trails etc. FLP 11/04 LDL 93, HDL 75 triglycerides 61 (5) History of Lyme disease: Plan: and Lyme carditis evaluated by a child care development specialist Plan on tele. Cardiology following- appreciated Mildly elevated TSH - not concerning . Admission and Anticipated Discharge Date Admission Date: November 04, 2022 Subjective seen around 9 am No complaints. Wonders if he had a seizure and not a cardiac event the other day which caused a syncopal episode causing admission. Showing me on his iPad the frequency of the LCD lights on his pinball machine with a warning on the manual that this may precipitate L of epileptic seizures. He has no history of seizures but his brother has seizure disorder. Also his father at an advanced age had seizure medications ongoing. No dizziness/chest pain/syncope Physical Exam Physical Exam: pleasant, conversant, in street clothes, slightly anxious today H/N : no thyromegaly Chest CTA cvs: s1, s2 no murmur tele- sinus bradycardia in the 50s, paroxysmal atrial tachycardia seen around 10 AM on telemetry IMPROVEMENT SPEC : grossly intact cheerful, normal insight and judgment Results & Data Results & Data ([facility]) Vital Signs (Past 12 Hours) Vital Signs Temp Pulse Pulse Resp BP Pulse Ox O2 Del Method 11/05/22 12:09 36.5 C 53 L 20 150/75 H 99 Room Air 11/05/22 08:00 52 L 11/05/22 07:53 36.6 C 57 L 20 115/72 97 Room Air Diagnostic Findings MRI brain pending Medications Administered Home Medications Medication Instructions Recorded Confirmed Last Taken No Known Home Medications 01/16/19 11/02/22 Unknown Active Medications Generic Name Dose Route Start Last Admin Trade Name Carlos Alberto PRN Reason Stop Dose Admin Amlodipine Besylate 2.5 mg 11/04/22 09:00 11/05/22 08:08 Amlodipine Besylate 5 Mg Tab PO 12/04/22 08:59 2.5 mg QAM GLORIA Administration PG Care Time/CCT Total # of Minutes Spent Total Time Spent with Patient: Total time spent is greater than 50% in coordination of care (as documented) at patient's floor/unit and/or counseling patient: Prolonged Care Time 35 minutes extra time coordinating between child care development specialist on-call, EP child care development specialist and neurologist Coding Level of Care Code 79430 Subseq Hosp Care Lvl 2 Diagnoses Syncope and collapse R55 Hypertension I10 Celiac disease K90.0 Left bundle branch block I44.7 History of Lyme disease Z86.19
--- NOTE | 2022-11-05 16:23 | Cardiology Progress Note ---
Date of Service November 05, 2022 Assessment & Plan (1) Syncope and collapse: (2) Bradycardia: (3) Left bundle branch block: Plan ASSESSMENT/PLAN: 1. Syncope: Had syncopal event without warning with smart watch suggesting no heart beat. Has been seen by electrophysiology, Dr. Biggs who tentatively plan for pacemaker implantation tomorrow. Any questions were answered today and he plans on asking more questions with electrophysiology as Dr. Biggs plans on seeing him later today. No further syncope while here. No obvious etiology noted on telemetry. We discussed the fact that cannot know for certain exactly what happened during the event other than that he had unexplained syncope, without heart beat noted on his smart watch around that time. Neurology agrees that this event does not appear to be of primary neurologic etiology. 2. Bradycardia: Has mild bradycardia currently but asymptomatic. 3. Left bundle-branch block: Chronic. 4. Disposition: Dr. Biggs will resume his cardiology care tomorrow and plans on speaking with him tonight. Patient care discussed with primary hospitalist, Neurology, and Dr. Biggs of electrophysiology. Admission and Anticipated Discharge Date Admission Date: November 04, 2022 Subjective Patient seen this afternoon at the request of hospitalist. He had a syncopal event pre-hospital. No further syncope or near-syncope. Denies chest pain, shortness of breath, palpitations. He was concerned that perhaps he had a seizure after reading about things online. Hospitalist placed a consult for Neurology. Dr. Biggs tentatively planned for pacemaker implantation tomorrow. After speaking with Dr. Hughes, he is now comfortable proceeding with pacemaker implantation as he initially discussed with Dr. Biggs. He was initially alone in his hospital room but his presented at the bedside during our conversation. Physical Exam Physical Exam: Gen.: No acute distress. Alert and oriented. HEENT: Anicteric sclera. Neck: No JVD. Cardiac: PMI was nondisplaced. No ventricular heave. Regular in the 50s. Normal S1-S2. No murmurs, rubs, or gallops. Pulmonary: Clear to auscultation bilaterally without wheezes, rales, or rhonchi. Abdomen: Soft, nontender, nondistended, with normoactive bowel sounds. No bruits noted. Extremities: 2+ radial pulses bilaterally. 2+ posterior tibialis pulses bilaterally. No edema or cyanosis. Psychiatric: Affect appears appropriate. Results & Data ([facility]) Vital Signs (Past 12 Hours) Vital Signs Temp Pulse Pulse Resp BP Pulse Ox O2 Del Method 11/05/22 12:09 36.5 C 53 L 20 150/75 H 99 Room Air 11/05/22 08:00 52 L 11/05/22 07:53 36.6 C 57 L 20 115/72 97 Room Air Diagnostic Findings Telemetry personally reviewed: Sinus bradycardia noted during usual sleeping hours. Possible nonconducted P-waves within the T-wave at times. Short runs of nonsustained atrial tachycardia. ECG personally reviewed from 11/05/2022: Sinus bradycardia 53 beats per minute. LBBB. Echo 11/03/2022: Normal LV size, wall motion, systolic function. EF 55-60%. Mild MR reported. Medications Administered Current Inpatient Medications Acetaminophen (Acetaminophen 325 Mg Tab) 650 mg PO Q4H PRN PRN Reason: Pain or Fever Stop: 12/03/22 02:14 Amlodipine Besylate (Amlodipine Besylate 5 Mg Tab) 2.5 mg PO QAM [facility] Stop: 12/04/22 08:59 Last Admin: 11/05/22 08:08 Dose: 2.5 mg PG Care Time/CCT Total # of Minutes Spent Total Time Spent with Patient: Total time spent is greater than 50% in coordination of care (as documented) at patient's floor/unit and/or counseling patient: Coding Level of Care Code 17382 Subseq Hosp Care Lvl 3 Diagnoses Syncope and collapse R55 Bradycardia R00.1 Left bundle branch block I44.7
[2022-11-05] MEDS ORDERED: GADOBUTROL 65ML VIAL IV ONE (17:00)
--- NOTE | 2022-11-05 17:57 | Magnetic Resonance Report ---
MR brain seizure wo/w con HISTORY: 62 years-old Male seizure acute seizure like activity COMPARISON: Head CT 11/02/2022, brain MRI 03/28/2018 TECHNIQUE: Multiplanar multisequence MRI of the brain was obtained both with and without the use of 8 cc Gadavist utilizing seizure protocol FINDINGS: There is no restricted diffusion to suggest acute or subacute infarct. The midline structures are unr emarkable. Partially empty sella. Degenerative changes of the imaged upper cervical spine. No acute i ntracranial hemorrhage, midline shift, abnormal extra-axial collection, hydrocephalus or intracranial mass. No pathologic blooming artifact on the T2 star series. Mesial temporal lobes are within normal limits. There is no evidence of mesial temporal sclerosis, ross matter heterotopia or cortical dyspl gagandeep. Volume and signal of the brain parenchyma is within normal limits. Subcentimeter focus of incre ased T2/FLAIR signal within the subcortical left frontal lobe on image 10 series 10 is likely of no c linical significance. The cerebral venous sinuses and major arterial flow voids appear patent. The skull, orbits and soft t issues are unremarkable. Mastoid air cells and paranasal sinuses are clear. No abnormal enhancement. IMPRESSION: 1. No acute intracranial abnormality. 2. No abnormal enhancement. ACT 112: Negative or not required by law. The above report was generated using voice recognition software. It may contain grammatical, syntax o r spelling errors. Electronically signed by: Yves Jane M.D. 11/05/2022 5:55 PM
--- NOTE | 2022-11-05 20:23 | Cardiology Progress Note ---
Date of Service November 05, 2022 Assessment & Plan (1) Syncope and collapse: Plan Syncope: Technically the cause of his syncope is unknown, however based on his 's clear description and his data on his watch it appears that he had no pulse for a substantial period of time (several minutes, not seconds) and therefore his syncopal event is almost certainly either extreme bradycardia or tachycardia such as rapid ventricular tachycardia or ventricular fibrillation. In his case tachycardias unlikely (although possible) with bradycardia being much more likely. Since he has underlying AV conduction disease already transient complete heart block is most likely although sinus node dysfunction is also possible but much less likely. I discussed options of loop recorder implantation current try to document his arrhythmia which so far we have not identified, however this could result in a life-threatening event similar to what he experienced already. Since bradycardia is most likely a pacemaker would allow treatment and would also monitor for tachycardia. I discussed the concept that if tachycardia occurred we would know about it although the event would be potentially repeated but there is little we can do about that and certainly implanting an ICD with no evidence is not appropriate. We will therefore plan on dual-chamber pacemaker implantation tomorrow. I discussed the indications, procedure, risks and alternatives with him and his who was present in the room and they understand and agree to proceed. He is scheduled for 8:00 tomorrow morning. Admission and Anticipated Discharge Date Admission Date: November 04, 2022 Subjective Events regarding his presentation and his hospital course were reviewed in detail. I discussed his presentation with him and his including signs and symptoms during the event. He feels well this evening, no further symptoms, no lightheadedness, dizziness, presyncope or syncope. Physical Exam Physical Exam: Constitutional: Alert, cooperative and in no distress. HEENT: Unremarkable Neck: No jugular venous distention, carotid pulses are normal and equal bilaterally without bruits. Pulmonary: Clear to auscultation bilaterally. Cardiac: Regular rhythm with no murmur, gallop or rub. Abdomen: Soft, nontender with normal bowel sounds. Extremities: No edema. Distal pulses intact. Neurologic: No focal findings. Gait is steady. Skin: No rash, ecchymoses or petechiae. Results & Data ([facility]) Vital Signs (Past 12 Hours) Vital Signs Temp Pulse Pulse Resp BP Pulse Ox O2 Del Method 11/05/22 19:40 36.4 C L 53 L 18 165/84 H 98 Room Air 11/05/22 16:00 78 11/05/22 12:09 36.5 C 53 L 20 150/75 H 99 Room Air Laboratory Results Intake and Output 11/05/22 11/05/22 11/05/22 06:59 14:59 22:59 Intake Total 500 / 1240 515 / 515 Balance 500 / 1240 515 / 515 Intake: Oral 500 / 1240 515 / 515 Other: Weight 82.4 kg 82.4 kg Weight Measurement Method Built in [facility] Patient Weight 11/06/22 06:59 Weight 82.4 kg Diagnostic Findings Telemetry: Brief episodes of PAT, no AV block or ventricular arrhythmias. Nothing to suggest a cause for his syncope. PG Care Time/CCT Total # of Minutes Spent Total Time Spent with Patient: Total time spent is greater than 50% in coordination of care (as documented) at patient's floor/unit and/or counseling patient: Coding Level of Care Code 65532 Subseq Hosp Care Lvl 3 Diagnoses Syncope and collapse R55
--- NOTE | 2022-11-06 05:43 | Electrocardiogram Report ---
Test Reason : Blood Pressure : / mmHG Vent. Rate : 051 BPM Atrial Rate : 051 BPM P-R Int : 188 ms QRS Dur : 134 ms QT Int : 532 ms P-R-T Axes : 065 065 259 degrees QTc Int : 490 ms Sinus bradycardia with Premature supraventricular complexes Left bundle branch block Abnormal ECG When compared with ECG of 03-NOV-2022 05:09, Premature supraventricular complexes are now Present Confirmed by Avery Britt ([id number]) on 11/06/2022 5:42:47 AM Referred By: REFERRED SELF Confirmed By:Avery Britt
[2022-11-06] MEDS ORDERED: LACTATED RINGER'S 1,000 ML IV SCH (06:00)
[2022-11-06] MEDS ORDERED: ceFAZolin 330 MG/ML 1 GM VIAL IV SCH (06:00)
--- NOTE | 2022-11-06 06:34 | Electrocardiogram Report ---
Test Reason : Blood Pressure : / mmHG Vent. Rate : 053 BPM Atrial Rate : 053 BPM P-R Int : 182 ms QRS Dur : 138 ms QT Int : 478 ms P-R-T Axes : 068 074 266 degrees QTc Int : 448 ms Sinus bradycardia Left bundle branch block Abnormal ECG When compared with ECG of 04-NOV-2022 05:56, Premature supraventricular complexes are no longer Present Confirmed by Avery Britt ([id number]) on 11/06/2022 6:33:32 AM Referred By: REFERRED SELF Confirmed By:Avery Britt
[2022-11-06] MEDS ORDERED: BACITRACIN OINT 0.9 GM PKT ONE (07:00)
[2022-11-06] MEDS ORDERED: VANCOMYCIN HCL 1000MG/20ML VIAL ONE (07:00)
[2022-11-06] MEDS ORDERED: LIDOCAINE 1% LOCAL 20 ML VIAL ONE (07:00)
[2022-11-06] MEDS ORDERED: WATER, STERILE FOR INJ 10 ML VIAL ONE (07:01)
[2022-11-06] MEDS ORDERED: ceFAZolin 330 MG/ML 1 GM VIAL ONE (07:57)
[2022-11-06] MEDS ORDERED: fentaNYL citrate 100 MCG/2 ML VIAL ONE (07:57)
[2022-11-06] MEDS ORDERED: MIDAZOLAM HCL 5 MG/ML 1 ML VIAL ONE (07:57)
--- NOTE | 2022-11-06 08:23 | Pre Anesthesia Assessment ---
Date of Service November 06, 2022 Pre Sedation Assessment Vital Signs Temp Pulse Pulse Resp BP Pulse Ox O2 Del Method 11/06/22 07:58 56 L 16 158/85 H 98 Room Air 11/06/22 07:08 36.5 C 53 L 18 137/76 95 Room Air 11/06/22 02:42 36.5 C 54 L 18 126/62 97 Room Air 11/06/22 00:46 52 L 11/05/22 22:51 36.6 C 53 L 18 156/75 H 98 Room Air 11/05/22 19:40 36.4 C L 53 L 18 165/84 H 98 Room Air 11/05/22 16:00 78 11/05/22 12:09 36.5 C 53 L 20 150/75 H 99 Room Air Cardiovascular RRR, no murmur, no edema Respiratory normal respiratory effort, lungs clear to auscultation Pre-Sedation Airway Assessment Smoking Status: Never smoker Short, Thick Neck: No Thyromental Distance: > or= 3.5 Finger Breadths Oral Cavity: + WNL Mallampati Class: III ASA: ASA3 NPO Status Date of Last Intake of Fluids: 11/05/22 Time of Last Intake of Fluids: 20:00 Date of Last Intake of Solid Food: 11/05/22 Time of Last Intake of Solid Foods: 20:00 Procedure Planning Contraindications for Sedation: none Current Medications Reviewed: Yes Notes The planned sedation has been discussed with the patient. Informed Consent was obtained. I have identified the patient, determined the appropriateness of sedation and have assessed the patient immediately prior to the procedure. All medicine(s) and interventions are by my order.
--- NOTE | 2022-11-06 08:23 | History & Physical Bridge Note ---
Date of Service November 06, 2022 History & Physical Bridge Note I have examined the patient, reviewed the History & Physical and in the interval since the performance of the History & Physical I have noted the following changes of clinical significance: no changes noted. I reviewed the indications, procedure, risks and alternatives with the patient, and answered all questions. Patient understands and agrees to the procedure. Consent obtained. I also reviewed the risks and use of sedation, patient understands and consent obtained.
--- NOTE | 2022-11-06 10:15 | Electrophysiology Report ---
Date of Service November 06, 2022 Electrophysiology Procedure Electrophysiology Procedure Report Preoperative diagnosis: Intermittent complete heart block Postoperative diagnosis: Same Procedure: Dual-chamber left bundle branch pacemaker implantation Surgeon: Alfredo Biggs MD Estimated blood loss: 20 cc Complications: None Disposition: [employer] recovery Procedure details: After obtaining informed consent for the procedure, the patient was brought to the laboratory and prepped and draped in the standard sterile manner. The left prepectoral region was anesthetized with 1% lidocaine local anesthetic and left axillary venipuncture was performed by percutaneous technique and a guidewire placed through the left subclavian vein into the superior vena cava. The area was further infiltrated with 1% lidocaine local anesthetic and a 5 cm incision was made parallel to the left clavicle and 2 cm below it and carried down to the anterior pectoralis fascia. A pacemaker pocket was formed by blunt dissection anterior to the pectoralis fascia and a vancomycin-soaked sponge was placed in the pocket. An 8 [place] Medtronic lead introducer was placed over the guidewire into the left subclavian vein, the dilator and guidewire were removed and a bipolar active fixation steroid tipped atrial lead was advanced through the introducer into the superior vena cava. A guidewire was placed through the introducer and the introducer was stripped from the lead and guidewire. The atrial lead was temporarily positioned in the right ventricle for backup pacing. A 7 [place] Medtronic lead introducer was placed over the guidewire into the left subclavian vein, the dilator and guidewire were removed. A C315 His 02 septal sheath was advanced through the introducer over a guidewire and advanced into the right ventricular outflow tract. The guidewire and dilator were removed and the sh eath was positioned in a mid septal location. A bipolar active fixation steroid tipped ventricular lead was advanced through the introducer and rotated to advance the screw into the septum. Septal penetration was confirmed visually. Pacing and sensing thresholds were evaluated in bipolar configuration and are noted on the data sheet. The septal sheath was stripped away from the lead. Pacing and sensing thresholds in the septal lead were evaluated in bipolar configuration and are recorded on the implant data sheet. The atrial lead was then removed from the right ventricle and using a curved stylette the atrial lead was positioned in the region of the atrial appendage and the screw extended fixing the lead in position. Pacing and sensing thresholds were evaluated in bipolar configuration and are recorded on the implant data sheet. Once the leads were in position they were attached to the anterior pectoralis fascia using 2 sutures of 2-0 silk around each lead collar. The vancomycin soaked sponge was removed from the pocket, hemostasis was obtained, the pacemaker was attached to the leads and placed in the pocket with the leads coiled beneath it. The incision was closed with a running double subcutaneous closure of 3-0 Vicryl absorbable suture, followed by running subcuticular skin closure of 4-0 Vicryl absorbable suture. Bacitracin ointment was placed on the incision and a dressing applied. [facility] [place] Electrophysiology codes Indication for Procedure (1) Complete heart block, transient: Pacing Procedure 1: Pacin Insert/Replace Pacer A & V PG Moderate Sedation Codes Moderate Sedation Codes Procedure 1: Sedation/Anesthesia: 68566 Mod Sedation by the same physician;Init15 Min Child Age 5 & Up Procedure 2: Sedation/Anesthesia: 53432 Mod Sedation by the same physician; Ea [id number] Minutes
[2022-11-06] MEDS: amLODIPine BESYLATE 5 MG TAB PO SCH (11:27)
--- NOTE | 2022-11-06 11:34 | Electrocardiogram Report ---
Test Reason : Blood Pressure : / mmHG Vent. Rate : 058 BPM Atrial Rate : 058 BPM P-R Int : 150 ms QRS Dur : 110 ms QT Int : 484 ms P-R-T Axes : 066 -62 039 degrees QTc Int : 475 ms Sinus bradycardia Left axis deviation Low voltage QRS limb leads Cannot rule out Anterior infarct , age undetermined Abnormal ECG When compared with ECG of 05-NOV-2022 10:14, Left bundle branch block is no longer Present Minimal criteria for Anterior infarct are now Present Confirmed by Sergei Ambriz ([id number]) on 11/06/2022 11:34:03 AM Referred By: REFERRED SELF Confirmed By:Sergei Ambriz
--- NOTE | 2022-11-06 14:44 | XRay Report ---
TWO VIEW CHEST CLINICAL HISTORY: Pacemaker implantation. FINDINGS: PA and lateral chest radiographs are compared to study dated 11/02/2022. A 2-lead cardiac pa cemaker has been placed and partially obscures the left upper chest. Leads project over the right atr ial appendage and right ventricle. The heart is enlarged. The pulmonary vasculature is noncongested. There is mild bibasilar scarring/atelectasis. No airspace consolidation or pleural effusion is identi fied. There is no pneumothorax. The skeletal structures are osteopenic. The bony thorax appears intac t. IMPRESSION: 1. A 2-lead cardiac pacemaker has been implanted as above. No pneumothorax is seen post procedure. 2. Cardiomegaly without radiographic evidence of congestive failure. 3. No airspace consolidation or pleural effusion is identified. ACT 112: Negative or not required by law. Electronically signed by: Aniket Mccormick M.D. 11/06/2022 2:42 PM
--- NOTE | 2022-11-06 15:39 | Post Anesthesia Assessment ---
Date of Service November 06, 2022 Post Sedation Assessment Vital Signs Temp Pulse Pulse Resp BP Pulse Ox O2 Del Method 11/06/22 12:30 36.5 C 66 20 130/80 99 11/06/22 11:30 36.4 C L 56 L 18 157/72 H 98 Room Air 11/06/22 11:00 36.5 C 67 20 147/85 H 98 Room Air 11/06/22 10:45 36.7 C 63 20 146/74 H 98 Room Air 11/06/22 10:21 58 L 14 132/65 98 Room Air 11/06/22 10:06 56 L 16 141/72 H 98 Room Air 11/06/22 08:00 55 L 11/06/22 07:58 56 L 16 158/85 H 98 Room Air 11/06/22 07:08 36.5 C 53 L 18 137/76 95 Room Air 11/06/22 02:42 36.5 C 54 L 18 126/62 97 Room Air 11/06/22 00:46 52 L 11/05/22 22:51 36.6 C 53 L 18 156/75 H 98 Room Air 11/05/22 19:40 36.4 C L 53 L 18 165/84 H 98 Room Air 11/05/22 16:00 78 Recovery Score Activity: Moves 4 extremities Respiration: Deep Breath/Cough Circulation: +/-20% PreAnes Value Consciousness: Fully Awake Oxygen Saturation: > 92% On Room Air Post Anesthesia Score: 10 Discharge Sedation Level of Care: Fast Track Phase II Post Sedation Plan On clinical assessment, the patient appears to have tolerated the sedation without complications. Patient is recovering as anticipated. Patient will continue to be monitored by nursing and may be discharged when sedation discharge criteria are met per below protocol. Upon Completions of procedure up to 15 minutes continue every 5 minute vital signs and the P.A.R. score; then discharge to a Phase I or Fast Track to Phase II per the following guidelines: * Discharge Patient to appropriate Phase II area if PAR is 8 or greater or return to pre- procedure baseline. The post - procedure orders will be as directed. * If PAR score is less than 8 or not return to pre-procedure baseline then p atient will follow Phase I monitoring till PAR is reached for Phase II. The Phase I may be done in procedure room or may call to secure a Phase I area. * If naloxone or flumazenil are used for reversal, hold in Phase I for continued monitoring from when last reversal dose was given for a minimum of 60 minutes or longer pending the nurse and/or physician discretion of patient condition before discharge to Phase II. Please call the Sedation Physician to re-evaluate and complete post-note for discharge to Phase II area. Do NOT discharge from procedure sedation or Phase 1 until post- sedation evaluation note is complete by procedure /sedation MD Sedation Discharge Instructions to be given to the patient at discharge to home.
--- NOTE | 2022-11-06 17:13 | Discharge Summary ---
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 The patient reports that when he had his cardiac arrhythmias in the past, he had warnings of lightheadedness or dizziness. He denies any warning at this episode. Overall length of time of episode was estimated between 2 to 4 minutes. His reports that he did lose bladder control, but did not have any postictal state afterwards, and thought he might have had tense muscles, but did not have any overt shaking contractions. The patient denies any change in his usual activity or eating or drinking patterns. He typically averages 1 glass of wine daily, which he had today. His father has had a history of a pacer placement by Dr. Biggs Principal Diagnosis Syncope due to transient complete heart block status post dual-chamber pacemaker placement 11/06/2022 Discharge Exam seen around 430 pm : pleasant, conversant, in street clothes, pacing the halls impatient to go home H/N : no thyromegaly Chest CTA, pacemaker in place covered with dressing. 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 cheerful, normal insight and judgment Discharge Data Allergies Allergy/AdvReac Type Severity Reaction Status Date / Time No Known Drug Allergies Allergy Unknown NONE Verified 11/02/22 21:15 wheat Allergy Unknown AVOIDS Verified 11/02/22 21:15 CELIAC DISEASE Consultations 11/03/22 00:24 ED Decision to Admit Stat 11/03/22 02:15 Consult Cardiology Routine 11/05/22 13:32 Consult Neurology Routine Procedures Performed Operation Date: 11/06/22 08:00 Actual Procedures p Pacer with A/V Leads (Dual) - Alfredo Biggs MD Ordered Studies 11/02/22 21:22 CT head/brain wo con Urgent 11/05/22 15:27 MR brain seizure wo/w con Urgent 11/06/22 08:00 EP Lab Images for PACS ONCE Hospital Course (1) Syncope and collapse: assumed complete heart block needing pacemaker placement. 11/05 D/W Roshni Biggs and North. (Ditch Repairer and core drill operator helper on- call today respectively). Neurology consult obtained to rule out seizures. Mendy Hughes' s input- unlikely epileptic seizures. No plan for EEG Cardiogenic cause of syncope appears most likely. Patient would like to speak with a core drill operator helper in detail before any procedure and both cardiologists above aware . MRI brain 11/05 showed no abnormality at all. Dual-chamber pacemaker placed 11/06 . Post pacemaker chest x-ray normal without pneumothorax. (2) Hypertension: new dx- last got bp check a year ago at PCP visit and was in 130s he thinks Started amlodipine 11/04 first dose 2.5 mg. Answered patient's questions re this drug. Low salt diet education given at discharge. Follow-up with PCP within 2 weeks (3) Celiac disease: dx 15 years ago-on glutein free diet- no symptoms. (4) Left bundle branch block: long standing. No symptoms of angina ever- very active running on trails etc. FLP 11/04 LDL 93, HDL 75 triglycerides 61 (5) History of Lyme disease: and Lyme carditis evaluated by a core drill operator helper. Admission history mentioned some ablation of the heart but the patient declines any heart procedures in the past. Plan Discharged after dual-chamber pacemaker placement on 1211follow-up with cardiology Dr. Biggs 3 days. Follow-up with PCP within 2 weeks Lifestyle style interventions to control blood pressure emphasized especially diet salt control. Total Time Total Time Spent Total Time Spent (In Minutes): 32 Discharge Plan Discharge Items Patient Disposition: Home - Self-Care Reason For Visit: SYNCOPE AND COLLAPSE Discharge Diagnosis: complete heart block transient s/p dual chamber pacemaker placement 11/06/2022 Non-emergency contact: Primary Care Provider Call non-emergency contact if: you have any medication questions Follow-up/Referrals: Alfredo Biggs MD [Physician] - 11/08/22 10:30 am Miya Be [Primary Care Provider] - (follow up- newly diagnosed Htn and dual chamber pacemaker placement PCU executive secretary to schedule and call pt in am.) Diet: Heart Healthy Diet Comment: watch salt intake Addtl Attending Provider Instructions: ACTIVITY RECOMMENDATIONS: * Do not raise affected arm over head for 2 weeks. SPECIAL CARE INSTRUCTIONS: * If bleeding occurs, apply direct pressure to area for 5 minutes. * Call your doctor if you have severe pain, fever, drainage or bleeding at site. * Keep dressing on and dry for 72 hours then remove. * Keep any scheduled doctor's appointment. * Implant Card - hand held device with website information given. SKIN IRRITATION: * You may experience some redness and/or swelling in the area where radiation was administered. If any skin irritation occurs, please contact your family physician. FOLLOW UP VISIT: Keep any scheduled doctor appointments. Pending Studies at Discharge: No Medications and DC Order Prescriptions: New acetaminophen 325 mg Tablet 650 mg PO Q4H PRN (Reason: pain) Qty: 20 0RF amlodipine [Norvasc] 5 mg Tablet 2.5 mg PO QAM Qty: 30 0RF No Action No Known Home Medications Discharge Orders: Discharge Order (Routine); Ordered 11/06/22 Ordered By: Hieu Fish/Other Patient Handouts: Low-Salt Choices, Low Salt Diet Dc Admission Data Admit Date/Time: 11/04/22 16:13 Attending Provider: Hieu Aceves Admit Provider: Luiz Becerril Primary Care Provider: Miya Be Other Providers: Luiz Becerril ; Alfredo Biggs ; Maxi Hughes Other Interventions: Discharge Summary Assessment (RN) Last Done: 11/06/22 17:21 Coding Level of Care Code D/C DAY MANAGEMENT >30 MINS Diagnoses Syncope and collapse R55 Hypertension I10 Celiac disease K90.0 Left bundle branch block I44.7 History of Lyme disease Z86.19
== END 2022-11-06 17:49 | disposition home or self-care (01) | DRG 244 ==
LOC: 4W 20:43 → ED 20:43 → SUATTDRO 11-03 00:30 → 4W 11-03 01:57